=== PATIENT | female | born 1990 | race Two or more races ===

== ENCOUNTER 2020-12-17 15:00 | Inpatient (IN) | payer OTHER ==
[~2020-12-17] VITALS: Ht 165.1 cm; Wt 82.1 kg
[2020-12-26] MEDS ORDERED: PRENATAL + DHA1 EAC1 (09:57)
== END 2020-12-28 11:50 | disposition home or self-care (01) | DRG 807 ==
LOC: LDR 12-26 07:13 → SURG-SUITE 12-26 19:05 → OB/GYN 12-28 15:00
PROVIDERS: ADMIT Obstetrics & Gynecology Maternal & Fetal Medicine; ATTEND Obstetrics & Gynecology Maternal & Fetal Medicine
PROC: 10E0XZZ Delivery of Products of Conception, External Approach (ICD-10-PCS; principal; 2020-12-26)
PROC: 0KQM0ZZ Repair Perineum Muscle, Open Approach (ICD-10-PCS; 2020-12-26)
PROC: 0W8NXZZ Division of Female Perineum, External Approach (ICD-10-PCS; 2020-12-26)
PROC: 10907ZC Drainage of Amniotic Fluid, Therapeutic from Products of Conception, Via Natural or Artificial Opening (ICD-10-PCS; 2020-12-26)
PROC: 3E033VJ Introduction of Other Hormone into Peripheral Vein, Percutaneous Approach (ICD-10-PCS; 2020-12-26)
PROC: 4A1HXFZ Monitoring of Products of Conception, Cardiac Rhythm, External Approach (ICD-10-PCS; 2020-12-26)
DX: O70.1 Second degree perineal laceration during delivery (principal); Z37.0 Single live birth; Z3A.39 39 weeks gestation of pregnancy; Z20.822 Contact with and (suspected) exposure to COVID-19

== ENCOUNTER 2020-12-25 10:18 | Outpatient (CLI) | payer OTHER ==
[2020-12-26] MEDS ORDERED: PRENATAL + DHA1 EAC1 (09:57)
== END 2020-12-25 12:27 | disposition home or self-care (01) ==
LOC: NST 10:18
PROVIDERS: ATTEND Obstetrics & Gynecology Maternal & Fetal Medicine
DX: Z34.83 Encounter for supervision of other normal pregnancy, third trimester (principal)

== ENCOUNTER 2022-09-20 16:27 | Inpatient (IN) | payer OTHER ==
[~2022-09-20] VITALS: Ht 165.1 cm; Wt 3.2 kg
[~2022-09-20 16:27] MED LIST: PRENATAL + DHA1 EAC1
== END 2022-09-23 17:54 | disposition home or self-care (01) | DRG 785 ==
LOC: O/R 09-21 05:03 → OB/GYN 09-21 12:34
PROVIDERS: ADMIT Obstetrics & Gynecology Gynecology; ATTEND Obstetrics & Gynecology Gynecology
PROC: 0UB70ZZ Excision of Bilateral Fallopian Tubes, Open Approach (ICD-10-PCS; 2022-09-21)
PROC: 4A1HXCZ Monitoring of Products of Conception, Cardiac Rate, External Approach (ICD-10-PCS; 2022-09-21)
PROC: 10D00Z1 Extraction of Products of Conception, Low, Open Approach (ICD-10-PCS; principal; 2022-09-21 16:40)
DX: O32.1XX0 Maternal care for breech presentation, not applicable or unspecified (principal); O99.824 Streptococcus B carrier state complicating childbirth; Z3A.38 38 weeks gestation of pregnancy; Z37.0 Single live birth; Z20.822 Contact with and (suspected) exposure to COVID-19; Z30.2 Encounter for sterilization